=== PATIENT | male | born 1970 | race Caucasian/White ===

== ENCOUNTER → 2016-08-08 | Outpatient (CLI) | payer OTHER ==
[~2016-08-08] MED LIST: AMBI10TA PO; BACL10TA PO; FOLI1TAB2 PO; IBUP800T23 PO; NORC7.5T PO; NORCOTAB PO; TOPA25TA10 PO; VITA100T18 PO
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
== END ==
LOC: M LAB 12:21
PROVIDERS: ATTEND Psychiatry & Neurology Neurology
DX: M19.012 Primary osteoarthritis, left shoulder (principal)

== ENCOUNTER → 2016-08-08 | Outpatient (CLI) | payer OTHER ==
[2016-08-08 13:15] LABS: MEAN CORPUSCULAR HEMOGLOBIN 29.2 pg (27.0-33.0); MEAN CORPUSCULAR HGB CONC 33.1 g/dl (32.0-36.5); MEAN CORPUSCULAR VOLUME 88.1 fl (80.0-96.0); RED CELL DISTRIBUTION WIDTH 11.8 % (11.5-14.5); WHITE BLOOD COUNT 4.4 K/mm3 (4.0-10.0)
[2016-08-08 14:45] LABS: ALBUMIN/GLOBULIN RATIO 1.29 (1.00-1.93); ALKALINE PHOSPHATASE 82 U/L (45-117); ALT/SGPT 31 U/L (12-78); ANION GAP 9 MEQ/L (8-16); AST/SGOT 22 U/L (15-37); BILIRUBIN,TOTAL 0.4 MG/DL (0.2-1.0); BLOOD UREA NITROGEN 20 MG/DL (7-18); CALCIUM LEVEL 8.6 MG/DL (8.5-10.1); CARBON DIOXIDE LEVEL 29 MEQ/L (21-32); CHLORIDE LEVEL 101 MEQ/L (98-107); CHOLESTEROL LEVEL 191 MG/DL (<200); CREATININE FOR GFR 1.05 MG/DL (0.70-1.30); GLOMERULAR FILTRATION RATE > 60.0 (>60); GLUCOSE, FASTING 95 MG/DL (70-105); POTASSIUM SERUM 4.7 MEQ/L (3.5-5.1); SODIUM LEVEL 139 MEQ/L (136-145); TOTAL PROTEIN 7.1 GM/DL (6.4-8.2); TRIGLYCERIDES LEVEL 89 MG/DL (<150)
== END ==
LOC: M LAB 12:14
PROVIDERS: ATTEND Nurse Practitioner Family
DX: F41.8 Other specified anxiety disorders (principal)

== ENCOUNTER → 2016-10-31 | Outpatient (CLI) | payer OTHER ==
--- NOTE | 2016-10-31 19:11 | ECGEPIP ---
Stationary ECG Study [facility] Test Date: 2016-10-31 Pat Name: JESSE ESTRADA Department: Room: - Gender: M Laborer Pipelines: HETAL : 1970 Requested By: Lakshmi Encinas PIANO STRINGER Order Number: [id number] Reading MD: Lenore Zhong Measurements Intervals [place] Rate: 68 P: 47 MS: 193 QRS: 3 QRSD: 97 T: 18 QT: 366 QTc: 390 Interpretive Statements SINUS RHYTHM NO CHANGE 05/31/15 Electronically Signed On 10-31-2016 19:11:01 EDT by Lenore Zhong
--- NOTE | 2016-11-01 02:32 | REP ---
Clinical: Shortness of breath . Comparison: 05/15/2015 . Technique: PA and lateral. Findings: The mediastinum and cardiac silhouette are normal. The lung champion are clear and without acute consolidation, effusion, or pneumothorax. The skeletal structures are intact and normal. Impression: 1. No acute cardiopulmonary process. Signed by Fer Diaz MD 11/01/2016 02:23 A
== END ==
LOC: M EKG 14:53
PROVIDERS: ATTEND Nurse Practitioner Family
DX: R06.02 Shortness of breath (principal)

== ENCOUNTER → 2016-11-13 | Outpatient (CLI) | payer OTHER ==
--- NOTE | 2016-11-13 09:17 | PFTRPT ---
Tech: Efe Son SECURITY PROGRAM MANAGER Age: 46 Sex: Male Race: Height: 70.00 Inches Weight: 209.00 Lbs BSA: 2.13 Diagnosis: R06.02 PULMONARY FUNCTION REPORT ORDERING PROVIDER: MEHRAN Rawls DATE OF SERVICE: 11/13/16 SPIROMETRY: Excellent technical quality. The forced vital capacity is normal. The FEV1 is borderline in proportion. The obstructive index is, therefore, borderline, as well. FLOW VOLUME LOOP: The expiratory limb of the flow volume loop does show some nonspecific flow rate reductions. LUNG VOLUMES: The total lung capacity is normal. The residual volume is in proportion. DIFFUSION CAPACITY: The diffusion capacity is normal. HEMOGLOBIN: No hemoglobin is available for correction. AIRWAY MECHANICS: Airways resistance and conductance are normal. IMPRESSION: Borderline study in view of the above. Please correlate clinically. MTDD
== END ==
LOC: M CARPUL 08:38
PROVIDERS: ATTEND Nurse Practitioner Family
DX: R06.02 Shortness of breath (principal); R94.2 Abnormal results of pulmonary function studies

== ENCOUNTER → 2016-11-21 | Outpatient (CLI) | payer OTHER ==
--- NOTE | 2016-11-21 22:07 | REP ---
Clinical: Pain . Technique: Internal rotation, external rotation, and Y view right shoulder . Findings: No acute fracture or dislocation. The acromioclavicular and glenohumeral joints are intact. No periarticular calcifications or degenerative changes are appreciated. Sub acromial space is normal. Surrounding soft tissues are unremarkable. Impression: Normal right shoulder radiographs. Signed by Fer Diaz MD 11/21/2016 09:59 P
== END ==
LOC: M RAD 17:11
PROVIDERS: ATTEND Orthopaedic Surgery
DX: M25.511 Pain in right shoulder (principal)

== ENCOUNTER → 2016-11-23 | Outpatient (CLI) | payer OTHER | LOC: M PAIN 11:20 | PROVIDERS: ATTEND Nurse Practitioner Family | DX: G89.29 Other chronic pain (principal); M54.81 Occipital neuralgia; M54.2 Cervicalgia; M47.812 Spondylosis without myelopathy or radiculopathy, cervical region; F14.10 Cocaine abuse, uncomplicated; F10.20 Alcohol dependence, uncomplicated; F09 Unspecified mental disorder due to known physiological condition; M51.36 Other intervertebral disc degeneration, lumbar region; G47.33 Obstructive sleep apnea (adult) (pediatric); F90.9 Attention-deficit hyperactivity disorder, unspecified type; F32.9 Major depressive disorder, single episode, unspecified; M13.0 Polyarthritis, unspecified; G47.00 Insomnia, unspecified; Z87.820 Personal history of traumatic brain injury; F17.220 Nicotine dependence, chewing tobacco, uncomplicated; Z79.1 Long term (current) use of non-steroidal anti-inflammatories (NSAID); Z79.899 Other long term (current) drug therapy; Z88.5 Allergy status to narcotic agent ==

== ENCOUNTER 2017-04-23 07:30 | Outpatient (RCR) | payer OTHER ==
[~2017-04-23 07:30] MED LIST changes: -BACL10TA PO; +BACL1TAB8 PO; -FOLI1TAB2 PO; +FOLI1TAB4 PO; +IBUP1TAB7 PO; -IBUP800T23 PO; -NORC7.5T PO; +NORC7.5T35 PO; +TOPA1TAB PO; -TOPA25TA10 PO; -VITA100T18 PO; +VITA100T88 PO
== END 2017-04-24 ==
LOC: M ST 07:30
PROVIDERS: ATTEND Physician Assistant Medical
DX: Z51.89 Encounter for other specified aftercare (principal); R26.89 Other abnormalities of gait and mobility; G45.9 Transient cerebral ischemic attack, unspecified; R41.840 Attention and concentration deficit
CPT/HCPCS: 92507; 96125; G9168; G9169

== ENCOUNTER → 2017-05-24 | Outpatient (RCR) | payer OTHER | LOC: M ST 04-30 08:14 | PROVIDERS: ATTEND Physician Assistant Medical | DX: G45.9 Transient cerebral ischemic attack, unspecified (principal); R41.840 Attention and concentration deficit ==

== ENCOUNTER → 2017-05-31 | Outpatient (REF) | payer OTHER | LOC: M LAB REF 17:46 | PROVIDERS: ATTEND Physician Assistant | DX: R50.9 Fever, unspecified (principal) ==

== ENCOUNTER 2017-06-13 11:30 | Outpatient (RCR) | payer OTHER | END 2017-06-24 | LOC: M ST 11:30 | DX: Z51.89 Encounter for other specified aftercare (principal); G45.9 Transient cerebral ischemic attack, unspecified; R41.840 Attention and concentration deficit | CPT/HCPCS: 92507 ==

== ENCOUNTER 2017-06-26 14:03 | Outpatient (RCR) | payer OTHER | END 2017-07-25 | LOC: M PT 06-29 15:15 | DX: Z51.89 Encounter for other specified aftercare (principal); M25.511 Pain in right shoulder ==

== ENCOUNTER 2017-07-27 10:26 | Outpatient (RCR) | payer OTHER | END 2017-08-22 | LOC: M PT 10:26 | DX: Z51.89 Encounter for other specified aftercare (principal); M25.511 Pain in right shoulder ==

== ENCOUNTER 2017-08-31 09:36 | Outpatient (RCR) | payer OTHER | END 2017-09-22 | LOC: M PT 09:36 → M OT 09-12 13:11 | DX: Z51.89 Encounter for other specified aftercare (principal); M77.12 Lateral epicondylitis, left elbow ==

== ENCOUNTER 2017-10-02 12:57 | Outpatient (RCR) | payer OTHER | END 2017-10-22 | LOC: M OT 12:57 → M PT 10-17 12:52 → M OT 10-09 13:00 → M PT 10-17 12:52 | DX: Z51.89 Encounter for other specified aftercare (principal); M77.12 Lateral epicondylitis, left elbow ==

== ENCOUNTER 2018-04-30 15:08 | Observation (INO) | payer OTHER ==
[2018-04-30 16:51] LABS: HEMATOCRIT 40.2 % (42.0-52.0); HEMOGLOBIN 13.8 g/dl (13.5-17.5); MEAN CORPUSCULAR HEMOGLOBIN 29.7 pg (27.0-33.0); MEAN CORPUSCULAR HGB CONC 34.3 g/dl (32.0-36.5); MEAN CORPUSCULAR VOLUME 86.5 fl (80.0-96.0); PLATELET COUNT, AUTOMATED 248 10^3/uL (150-450); RED BLOOD COUNT 4.65 10^6/uL (4.30-6.10); RED CELL DISTRIBUTION WIDTH 11.4 % (11.5-14.5); WHITE BLOOD COUNT 5.3 10^3/uL (4.0-10.0)
[2018-04-30 17:15] LABS: AMPHETAMINES LEVEL URINE NEGATIVE (NEGATIVE); BARBITURATES URINE NEGATIVE (NEGATIVE); BENZODIAZEPINES URINE NEGATIVE (NEGATIVE); CANNABINOIDS URINE NEGATIVE (NEGATIVE); COCAINE METABOLITE URINE POSITIVE (NEGATIVE); METHADONE URINE NEGATIVE (NEGATIVE); OPIATES URINE NEGATIVE (NEGATIVE); PHENCYCLIDINE URINE NEGATIVE (NEGATIVE)
[2018-04-30 17:24] LABS: ACETAMINOPHEN LEVEL < 2.0 UG/ML (10.0-30.0); ALBUMIN 3.6 GM/DL (3.2-5.2); ALBUMIN/GLOBULIN RATIO 1.24 (1.00-1.93); ALKALINE PHOSPHATASE 82 U/L (45-117); ALT/SGPT 25 U/L (12-78); ANION GAP 7 MEQ/L (8-16); AST/SGOT 23 U/L (7-37); BILIRUBIN,DIRECT < 0.1 MG/DL (0.0-0.2); BILIRUBIN,TOTAL 0.4 MG/DL (0.2-1.0); BLOOD UREA NITROGEN 16 MG/DL (7-18); CALCIUM LEVEL 8.7 MG/DL (8.5-10.1); CARBON DIOXIDE LEVEL 31 MEQ/L (21-32); CHLORIDE LEVEL 98 MEQ/L (98-107); CREATININE FOR GFR 1.03 MG/DL (0.70-1.30); ETHYL ALCOHOL (ETHANOL) < 0.003 % (0.000-0.010); GLOMERULAR FILTRATION RATE > 60.0 (>60); GLUCOSE, FASTING 131 MG/DL (70-100); POTASSIUM SERUM 4.3 MEQ/L (3.5-5.1); SALICYLATE LEVEL < 1.7 MG/DL (5.0-30.0); SODIUM LEVEL 136 MEQ/L (136-145); TOTAL PROTEIN 6.5 GM/DL (6.4-8.2)
[2018-04-30] MEDS: NS 1,000 ML IV ×2 (17:38→21:44)
[2018-05-01 06:14] LABS: HEMATOCRIT 40.4 % (42.0-52.0); HEMOGLOBIN 13.2 g/dl (13.5-17.5); MEAN CORPUSCULAR HEMOGLOBIN 28.8 pg (27.0-33.0); MEAN CORPUSCULAR HGB CONC 32.7 g/dl (32.0-36.5); MEAN CORPUSCULAR VOLUME 88.2 fl (80.0-96.0); PLATELET COUNT, AUTOMATED 222 10^3/uL (150-450); RED BLOOD COUNT 4.58 10^6/uL (4.30-6.10); RED CELL DISTRIBUTION WIDTH 11.6 % (11.5-14.5); WHITE BLOOD COUNT 4.5 10^3/uL (4.0-10.0)
[2018-05-01] MEDS: NS 1,000 ML IV ×2 (06:24→14:13)
[2018-05-01 06:34] LABS: ALBUMIN 2.9 GM/DL (3.2-5.2); ALKALINE PHOSPHATASE 88 U/L (45-117); ALT/SGPT 22 U/L (12-78); ANION GAP 6 MEQ/L (8-16); AST/SGOT 17 U/L (7-37); BILIRUBIN,TOTAL 0.2 MG/DL (0.2-1.0); BLOOD UREA NITROGEN 21 MG/DL (7-18); CARBON DIOXIDE LEVEL 27 MEQ/L (21-32); CHLORIDE LEVEL 108 MEQ/L (98-107); GLOMERULAR FILTRATION RATE > 60.0 (>60); GLUCOSE, FASTING 110 MG/DL (70-100); MAGNESIUM LEVEL 2.1 MG/DL (1.8-2.4); PHOSPHORUS LEVEL 3.7 MG/DL (2.5-4.9); POTASSIUM SERUM 4.2 MEQ/L (3.5-5.1); SODIUM LEVEL 141 MEQ/L (136-145); TOTAL PROTEIN 5.8 GM/DL (6.4-8.2)
[2018-05-01] MEDS: THIAMINE 100 MG TAB PO (09:18)
[2018-05-01] MEDS: ENOXAPARIN 40 MG/0.4 ML SYRINGE (J1650) SC (09:19)
== END 2018-05-02 00:05 ==
LOC: M PSY 05-02 00:12 → M MSPAV 05-02 00:12 → M ED 15:08 → M ED INP 20:34 → M MSPAV 23:14
DX: T14.91XA Suicide attempt, initial encounter (principal); T42.6X2A Poisoning by other antiepileptic and sedative-hypnotic drugs, intentional self-harm, initial encounter; T50.902A Poisoning by unspecified drugs, medicaments and biological substances, intentional self-harm, initial encounter; T43.012A Poisoning by tricyclic antidepressants, intentional self-harm, initial encounter; R45.851 Suicidal ideations; F10.10 Alcohol abuse, uncomplicated; F19.20 Other psychoactive substance dependence, uncomplicated; G47.33 Obstructive sleep apnea (adult) (pediatric); Z87.820 Personal history of traumatic brain injury; Z79.899 Other long term (current) drug therapy; Z88.8 Allergy status to other drugs, medicaments and biological substances
CPT/HCPCS: J1650

== ENCOUNTER 2018-05-01 18:46 | Inpatient (IN) | payer MEDICAID, OTHER ==
[2018-05-02] MEDS ORDERED: MIRTAZAPINE 15 MG TAB PO (09:00)
[2018-05-02] MEDS: NICOTINE 21MG/24HR 1 EA TRANSDERMAL TD (10:11)
[2018-05-02] MEDS ORDERED: MAALOX 30 ML SUSP *UDC PO (13:45)
[2018-05-02] MEDS ORDERED: MOM 30ML SUSPENSION UDC PO (13:45)
[2018-05-02] MEDS: CitaloPRAM (CeleXA) 20 MG TAB PO (15:57)
[2018-05-02] MEDS: GABAPENTIN 300 MG CAP PO ×2 (15:57→20:49)
[2018-05-02] MEDS: MIRTAZAPINE 15 MG TAB PO (20:49)
[2018-05-03] MEDS: GABAPENTIN 300 MG CAP PO ×3 (08:49→20:51)
[2018-05-03] MEDS: CitaloPRAM (CeleXA) 20 MG TAB PO (08:49)
[2018-05-03] MEDS: NICOTINE 21MG/24HR 1 EA TRANSDERMAL TD (08:49)
[2018-05-03] MEDS: MIRTAZAPINE 15 MG TAB PO (20:51)
[2018-05-04] MEDS: CitaloPRAM (CeleXA) 20 MG TAB PO (08:22)
[2018-05-04] MEDS: GABAPENTIN 300 MG CAP PO ×3 (08:22→20:27)
[2018-05-04] MEDS: NICOTINE 21MG/24HR 1 EA TRANSDERMAL TD (08:23)
[2018-05-04] MEDS: MIRTAZAPINE 15 MG TAB PO (20:27)
[2018-05-05] MEDS: GABAPENTIN 300 MG CAP PO ×3 (08:30→20:22)
[2018-05-05] MEDS: NICOTINE 21MG/24HR 1 EA TRANSDERMAL TD (08:30)
[2018-05-05] MEDS: CitaloPRAM (CeleXA) 20 MG TAB PO (08:30)
[2018-05-05] MEDS: MIRTAZAPINE 15 MG TAB PO (20:22)
[2018-05-05] MEDS ORDERED: IBUPROFEN 800 MG TAB PO (22:15)
[2018-05-06] MEDS: NICOTINE 21MG/24HR 1 EA TRANSDERMAL TD ×2 (08:24→08:40)
[2018-05-06] MEDS: GABAPENTIN 300 MG CAP PO (08:24)
[2018-05-06] MEDS: CitaloPRAM (CeleXA) 20 MG TAB PO (08:24)
== END 2018-05-06 13:50 | disposition home or self-care (01) | DRG 754 ==
LOC: M PSY 05-02 00:10
DX: F32.9 Major depressive disorder, single episode, unspecified (principal); F14.14 Cocaine abuse with cocaine-induced mood disorder; F10.10 Alcohol abuse, uncomplicated; F17.210 Nicotine dependence, cigarettes, uncomplicated; J30.9 Allergic rhinitis, unspecified; Z88.5 Allergy status to narcotic agent; Z88.8 Allergy status to other drugs, medicaments and biological substances; Z87.820 Personal history of traumatic brain injury; Z91.5 Personal history of self-harm; Z59.9 Problem related to housing and economic circumstances, unspecified

== ENCOUNTER 2018-08-07 21:21 | Emergency (ER) | payer MEDICAID, OTHER ==
[~2018-08-07] VITALS: Ht 177.8 cm; Wt 86.4 kg
[~2018-08-07 21:21] MED LIST changes: +CELE20TA PO; +CITA20TA4 PO; +DRIS50003 PO; +FOLI1TAB11 PO; -FOLI1TAB4 PO; +GABA-843 PO; +IBUP80TA PO; +LORA-243 PO; +MIRT15TA3 PO; +NICO21PAT TD; +TEMA30CA PO
[2018-08-07 21:22] VITALS: BP 140/79
[2018-08-07] MEDS ORDERED: METH1TAB40 (21:34)
[2018-08-07] MEDS ORDERED: GENT3OPD OD (22:37)
[2018-08-07] MEDS ORDERED: GENTAMICIN 0.3% OPHTH SOL 5 ML BTL OD ONE (22:45)
== END 2018-08-07 22:46 | disposition home or self-care (01) ==
LOC: M ED 21:21
DX: S05.01XA Injury of conjunctiva and corneal abrasion without foreign body, right eye, initial encounter (principal); W31.1XXA Contact with metalworking machines, initial encounter; Y92.89 Other specified places as the place of occurrence of the external cause; F41.9 Anxiety disorder, unspecified; F32.9 Major depressive disorder, single episode, unspecified; G43.909 Migraine, unspecified, not intractable, without status migrainosus; G40.909 Epilepsy, unspecified, not intractable, without status epilepticus; F19.10 Other psychoactive substance abuse, uncomplicated; F10.10 Alcohol abuse, uncomplicated; Z88.5 Allergy status to narcotic agent; Z79.899 Other long term (current) drug therapy

== ENCOUNTER → 2018-09-11 | Outpatient (REF) | payer OTHER, MEDICAID ==
[~2018-09-11] MED LIST changes: +GENT3OPD OD; +METH1TAB40
[2018-09-11 14:16] LABS: BASO % 0.5 % (0.0-1.0); EOS # 0.1 10^3/uL (0.0-0.50); EOS % 2.2 % (0.0-3.0); HEMATOCRIT 41.7 % (42.0-52.0); HEMOGLOBIN 13.6 g/dl (13.5-17.5); LYMPH # 1.6 10^3/uL (1.5-4.5); LYMPH % 38.9 % (24.0-44.0); MEAN CORPUSCULAR HEMOGLOBIN 29.2 pg (27.0-33.0); MEAN CORPUSCULAR HGB CONC 32.6 g/dl (32.0-36.5); MEAN CORPUSCULAR VOLUME 89.5 fl (80.0-96.0); MONO # 0.4 10^3/uL (0.0-0.8); MONO % 9.2 % (0.0-5.0); NEUTROPHILS % 48.7 % (36.0-66.0); PLATELET COUNT, AUTOMATED 189 10^3/uL (150-450); RED BLOOD COUNT 4.66 10^6/uL (4.30-6.10)
[2018-09-11 14:42] LABS: ALBUMIN 3.6 GM/DL (3.2-5.2); ALT/SGPT 20 U/L (12-78); BILIRUBIN,TOTAL 0.3 MG/DL (0.2-1.0); BLOOD UREA NITROGEN 15 MG/DL (7-18); CALCIUM LEVEL 8.3 MG/DL (8.5-10.1); CARBON DIOXIDE LEVEL 25 MEQ/L (21-32); CHLORIDE LEVEL 105 MEQ/L (98-107); GLOMERULAR FILTRATION RATE > 60.0 (>60); GLUCOSE, FASTING 163 MG/DL (70-100); SODIUM LEVEL 139 MEQ/L (136-145); TOTAL PROTEIN 6.3 GM/DL (6.4-8.2)
[2018-09-11 14:53] LABS: INR 0.94; PROTHROMBIN TIME 12.7 SECONDS (12.1-14.4)
[2018-09-11 16:22] LABS: HEPATITIS B SURFACE ANTIBODY POSITIVE (POSITIVE)
[2018-09-11 16:32] LABS: HEPATITIS B SURFACE ANTIGEN NEGATIVE (NEGATIVE)
[2018-09-11 17:01] LABS: HIV 1&2 SCREEN CENTAUR NEGATIVE (NEGATIVE)
[2018-09-12 14:12] LABS: HEPATITIS A IgG TOTAL Negative (Negative); HEPATITIS B CORE ANTIBODY IGG Negative (Negative)
== END ==
LOC: M LAB REF 13:30
PROVIDERS: ATTEND Nurse Practitioner Adult Health
DX: Z13.9 Encounter for screening, unspecified (principal)

== ENCOUNTER 2019-02-05 18:31 | Emergency (ER) | payer OTHER, MEDICAID ==
[~2019-02-05] VITALS: Ht 177.8 cm; Wt 89.9 kg
[~2019-02-05 18:31] MED LIST changes: -CITA20TA4 PO; +CITA20TA6 PO; +GENT0.3S36 OD; -GENT3OPD OD; +HYDR-3715 PO; +NORC1TAB8 PO; -NORC7.5T35 PO; -NORCOTAB PO
[2019-02-05 21:01] VITALS: BP 124/66
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
[2019-02-06] MEDS ORDERED: GOOD81CH2 PO (21:31)
--- NOTE | 2019-02-09 20:39 | ED PDOC ---
Post-Departure Follow-Up dangelo esquivel faxed formal report of ct max fac for fu Ten Rodriguez MD Feb 09, 2019 20:39
== END 2019-02-05 22:27 | disposition home or self-care (01) ==
LOC: M ED 18:31
DX: S00.83XA Contusion of other part of head, initial encounter (principal); H11.32 Conjunctival hemorrhage, left eye; Y04.8XXA Assault by other bodily force, initial encounter; Y92.098 Other place in other non-institutional residence as the place of occurrence of the external cause; Z87.820 Personal history of traumatic brain injury; M51.9 Unspecified thoracic, thoracolumbar and lumbosacral intervertebral disc disorder; F19.10 Other psychoactive substance abuse, uncomplicated; F10.10 Alcohol abuse, uncomplicated; F41.9 Anxiety disorder, unspecified; Z88.5 Allergy status to narcotic agent; Z79.899 Other long term (current) drug therapy

== ENCOUNTER 2019-02-06 21:27 | Emergency (ER) | payer OTHER, MEDICAID ==
[~2019-02-06] VITALS: Ht 180.3 cm; Wt 90.9 kg
[2019-02-06] MEDS ORDERED: GOOD81CH2 PO (21:31)
[2019-02-06] MEDS ORDERED: TETRACAINE 0.5% OPHTH SOLN 4ML OU ONE (22:00)
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
[2019-02-07 00:36] VITALS: BP 123/76
== END 2019-02-07 00:39 | disposition home or self-care (01) ==
LOC: M ED 21:27
DX: H11.32 Conjunctival hemorrhage, left eye (principal); H57.04 Mydriasis; G47.30 Sleep apnea, unspecified; Z87.820 Personal history of traumatic brain injury; Z87.891 Personal history of nicotine dependence; Z86.79 Personal history of other diseases of the circulatory system; Z79.82 Long term (current) use of aspirin; Z79.899 Other long term (current) drug therapy; Z88.5 Allergy status to narcotic agent

== ENCOUNTER 2019-02-11 20:35 | Emergency (ER) | payer OTHER, MEDICAID ==
[~2019-02-11] VITALS: Ht 177.8 cm; Wt 90.9 kg
[~2019-02-11 20:35] MED LIST changes: +GOOD81CH2 PO
[2019-02-12 01:04] VITALS: BP 121/76
== END 2019-02-12 01:45 | disposition home or self-care (01) ==
LOC: M ED 20:35
DX: H11.32 Conjunctival hemorrhage, left eye (principal); H57.02 Anisocoria; Z87.891 Personal history of nicotine dependence; Z87.828 Personal history of other (healed) physical injury and trauma

== ENCOUNTER → 2019-07-23 | Outpatient (CLI) | payer OTHER ==
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
== END ==
LOC: M PAIN 13:15
PROVIDERS: ATTEND Nurse Practitioner Family
DX: M79.18 Myalgia, other site (principal)

== ENCOUNTER 2019-12-15 22:11 | Emergency (ER) | payer OTHER ==
[~2019-12-15] VITALS: Ht 180.3 cm; Wt 79.9 kg
[2019-12-15] MEDS ORDERED: NS 1,000 ML IV ONE (22:30)
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
[2019-12-15 22:48] LABS: BASO # 0.1 10^3/uL (0.0-0.2); BASO % 1.1 % (0.0-1.0); EOS # 0.1 10^3/uL (0.0-0.5); EOS % 1.1 % (0.0-3.0); HEMATOCRIT 39.4 % (42.0-52.0); HEMOGLOBIN 13.2 g/dl (13.5-17.5); MEAN CORPUSCULAR HEMOGLOBIN 29.7 pg (27.0-33.0); MEAN CORPUSCULAR HGB CONC 33.5 g/dl (32.0-36.5); MEAN CORPUSCULAR VOLUME 88.5 fl (80.0-96.0); MONO # 0.4 10^3/uL (0.0-0.8); MONO % 9.3 % (0.0-5.0); NEUTROPHILS # 2.1 10^3/uL (1.5-8.5); NEUTROPHILS % 45.1 % (36.0-66.0); PLATELET COUNT, AUTOMATED 213 10^3/uL (150-450); RED BLOOD COUNT 4.45 10^6/uL (4.30-6.10); WHITE BLOOD COUNT 4.7 10^3/uL (4.0-10.0)
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
[2019-12-15 23:11] LABS: ALBUMIN 3.7 GM/DL (3.2-5.2); ALT/SGPT 27 U/L (12-78); BILIRUBIN,DIRECT 0.1 MG/DL (0.0-0.2); BILIRUBIN,TOTAL 0.2 MG/DL (0.2-1.0); BLOOD UREA NITROGEN 12 MG/DL (7-18); CALCIUM LEVEL 7.9 MG/DL (8.5-10.1); CARBON DIOXIDE LEVEL 25 MEQ/L (21-32); CHLORIDE LEVEL 102 MEQ/L (98-107); CK-MB VALUE MASS 2.6 NG/ML (<3.6); CPK CREATINE PHOSPHOKINASE 287 U/L (39-308); CREATININE FOR GFR 0.83 MG/DL (0.70-1.30); ETHYL ALCOHOL (ETHANOL) 0.281 % (0.000-0.010); GLOMERULAR FILTRATION RATE > 60.0 (>60); GLUCOSE, FASTING 95 MG/DL (70-100); MB/CK RELATIVE INDEX 0.91 (< OR =4); POTASSIUM SERUM 3.8 MEQ/L (3.5-5.1); SODIUM LEVEL 134 MEQ/L (136-145); TOTAL PROTEIN 6.5 GM/DL (6.4-8.2); TROPONIN I < 0.02 NG/ML (< 0.10)
[2019-12-15] MEDS ORDERED: MORPHINE 4 MG/ML 1ML VIAL/SYRINGE (J2270) IV PRN (23:15)
[2019-12-15] MEDS ORDERED: ONDANSETRON 4MG/2ML VIAL IV ONE (23:15)
[2019-12-16] MEDS ORDERED: LIDOCAINE W/EPINEPHRINE 1% 20ML VIAL As Ordered ONE (00:38)
[2019-12-16 00:47] LABS: AMPHETAMINES LEVEL URINE NEGATIVE (NEGATIVE); BARBITURATES URINE NEGATIVE (NEGATIVE); BENZODIAZEPINES URINE NEGATIVE (NEGATIVE); CANNABINOIDS URINE NEGATIVE (NEGATIVE); COCAINE METABOLITE URINE POSITIVE (NEGATIVE); METHADONE URINE NEGATIVE (NEGATIVE); OPIATES URINE POSITIVE (NEGATIVE); PHENCYCLIDINE URINE NEGATIVE (NEGATIVE)
[2019-12-16 01:15] VITALS: BP 125/73
--- NOTE | 2019-12-16 07:52 | ECGEPIP ---
[facility] - ED Test Date: 2019-12-15 Pat Name: JESSE ESTRADA Department: Room: - Gender: Male Medical Claims Representative: MR : [id number] Requested By: CAM Jay Order Number: [id number] Reading MD: Ric Meza Measurements Intervals [place] Rate: 81 P: 57 CO: 200 QRS: 42 QRSD: 102 T: 44 QT: 366 QTc: 426 Interpretive Statements SINUS RHYTHM INCOMPLETE RIGHT BUNDLE BRANCH BLOCK SIMILAR TO 05/01/18 Electronically Signed on 12-16-2019 7:52:38 EDT by Ric Meza
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
--- NOTE | 2019-12-17 14:27 | ED PDOC ---
Post-Departure Follow-Up dangelo esquivel faxed formal report of ct ls spine for fu Ten Rodriguez MD Dec 17, 2019 14:27
== END 2019-12-16 01:35 | disposition left against medical advice (07) ==
LOC: M ED 22:11
DX: S01.81XA Laceration without foreign body of other part of head, initial encounter (principal); F10.120 Alcohol abuse with intoxication, uncomplicated; V13.4XXA Pedal cycle driver injured in collision with car, pick-up truck or van in traffic accident, initial encounter; Y92.410 Unspecified street and highway as the place of occurrence of the external cause; Z88.5 Allergy status to narcotic agent; Z79.899 Other long term (current) drug therapy
CPT/HCPCS: 12011; 70450; 70486; 71045; 72125; 72170; 80048; 80076; 80307; 82550; 82553; 83605; 85025; 86850; 86900; 86901; 93005; 93041; 96361; 96374; 96375; 99285; G0480; J2270; J2405

== ENCOUNTER → 2020-12-04 | Outpatient (CLI) | payer OTHER ==
[~2020-12-04] MED LIST changes: +GABA-282 PO; -GABA-843 PO; +METH-1164; -METH1TAB40; -VITA100T88 PO; +VITAMIN B-1100 M4 PO
== END ==
LOC: M SLEEP 20:00
PROVIDERS: ATTEND Physician Assistant
DX: G47.33 Obstructive sleep apnea (adult) (pediatric) (principal)

== ENCOUNTER → 2020-12-30 | Outpatient (CLI) | payer OTHER ==
[2020-12-30 20:27] LABS: BASO % 0.5 % (0.0-1.0); EOS # 0.1 10^3/uL (0.0-0.5); EOS % 2.2 % (0.0-3.0); HEMATOCRIT 42.7 % (42.0-52.0); HEMOGLOBIN 13.9 g/dl (13.5-17.5); LYMPH # 1.5 10^3/uL (1.5-5.0); LYMPH % 24.4 % (24.0-44.0); MEAN CORPUSCULAR HEMOGLOBIN 28.9 pg (27.0-33.0); MEAN CORPUSCULAR HGB CONC 32.6 g/dl (32.0-36.5); MEAN CORPUSCULAR VOLUME 88.8 fl (80.0-96.0); MONO # 0.5 10^3/uL (0.0-0.8); MONO % 7.5 % (2.0-8.0); NEUTROPHILS # 4.1 10^3/uL (1.5-8.5); NEUTROPHILS % 65.1 % (36.0-66.0); PLATELET COUNT, AUTOMATED 229 10^3/uL (150-450); RED BLOOD COUNT 4.81 10^6/uL (4.30-6.10); WHITE BLOOD COUNT 6.2 10^3/uL (4.0-10.0)
[2020-12-30 21:02] LABS: ALBUMIN 3.8 GM/DL (3.2-5.2); ALT/SGPT 30 U/L (12-78); BILIRUBIN,TOTAL 0.3 MG/DL (0.2-1.0); BLOOD UREA NITROGEN 22 MG/DL (7-18); CALCIUM LEVEL 8.5 MG/DL (8.5-10.1); CARBON DIOXIDE LEVEL 30 MEQ/L (21-32); CHLORIDE LEVEL 106 MEQ/L (98-107); CREATININE FOR GFR 0.93 MG/DL (0.70-1.30); FREE T4 0.93 NG/DL (0.76-1.46); GLOMERULAR FILTRATION RATE > 60.0 (>60); GLUCOSE, FASTING 132 MG/DL (70-100); HEPATITIS B SURFACE ANTIBODY NEGATIVE (POSITIVE); SODIUM LEVEL 140 MEQ/L (136-145); THYROID STIMULATING HORMONE 0.457 uIU/ML (0.358-3.740); TOTAL PROTEIN 6.6 GM/DL (6.4-8.2)
[2020-12-30 21:41] LABS: HIV 1&2 SCREEN CENTAUR NEGATIVE (NEGATIVE)
[2020-12-30 22:48] LABS: GC DNA AMPLIFICATION NEGATIVE (NEGATIVE)
== END ==
LOC: M LAB 18:14
PROVIDERS: ATTEND Nurse Practitioner
DX: R53.83 Other fatigue (principal)

== ENCOUNTER → 2021-03-31 | Outpatient (CLI) | payer OTHER ==
[2021-03-31 12:31] LABS: PERCENT SATURATION 25.2 % (19.7-50.0)
== END ==
LOC: M LAB 09:31
PROVIDERS: ATTEND Nurse Practitioner
DX: G25.81 Restless legs syndrome (principal)

== ENCOUNTER → 2021-08-01 | Outpatient (CLI) | payer OTHER | LOC: M WUC 13:51 | PROVIDERS: ATTEND Physician Assistant | DX: M25.512 Pain in left shoulder (principal) ==

== ENCOUNTER → 2021-08-30 | Outpatient (CLI) | payer OTHER | LOC: M RAD 12:25 | PROVIDERS: ATTEND Physician Assistant | DX: M75.31 Calcific tendinitis of right shoulder (principal) ==

== ENCOUNTER 2021-09-24 09:06 | Emergency (ER) | payer OTHER ==
[~2021-09-24] VITALS: Ht 177.8 cm; Wt 88.6 kg
[2021-09-24 09:07] VITALS: BP 132/76
[2021-09-24] MEDS ORDERED: IBUP1TAB7 PO (09:18)
[2021-09-24] MEDS ORDERED: META1TAB22 PO (09:18)
[2021-09-24] MEDS ORDERED: PROPARACAINE 0.5% OPHTH SOL 15ML OD ONE (09:50)
[2021-09-24] MEDS ORDERED: GABA-282 PO (10:40)
== END 2021-09-24 13:30 | disposition home or self-care (01) ==
LOC: M ED 09:06
DX: H57.04 Mydriasis (principal); Z88.5 Allergy status to narcotic agent; Z79.899 Other long term (current) drug therapy

== ENCOUNTER → 2021-12-28 | Outpatient (CLI) | payer OTHER ==
[~2021-12-28] MED LIST changes: +META1TAB22 PO
[2021-12-28 12:39] LABS: BASO % 0.7 % (0.0-1.0); EOS # 0.2 10^3/uL (0.0-0.5); EOS % 3.7 % (0.0-3.0); HEMATOCRIT 44.4 % (42.0-52.0); HEMOGLOBIN 13.8 g/dl (13.5-17.5); LYMPH # 1.2 10^3/uL (1.5-5.0); LYMPH % 30.2 % (24.0-44.0); MEAN CORPUSCULAR HEMOGLOBIN 28.5 pg (27.0-33.0); MEAN CORPUSCULAR HGB CONC 31.1 g/dl (32.0-36.5); MEAN CORPUSCULAR VOLUME 91.5 fl (80.0-96.0); MONO # 0.4 10^3/uL (0.0-0.8); MONO % 9.4 % (2.0-8.0); NEUTROPHILS # 2.3 10^3/uL (1.5-8.5); NEUTROPHILS % 55.8 % (36.0-66.0); PLATELET COUNT, AUTOMATED 214 10^3/uL (150-450); RED BLOOD COUNT 4.85 10^6/uL (4.30-6.10)
[2021-12-28 13:34] LABS: ALBUMIN 3.5 GM/DL (3.2-5.2); ALT/SGPT 27 U/L (12-78); BILIRUBIN,DIRECT 0.1 MG/DL (0.0-0.2); BILIRUBIN,TOTAL 0.4 MG/DL (0.2-1.0); BLOOD UREA NITROGEN 13 MG/DL (7-18); CALCIUM LEVEL 8.6 MG/DL (8.5-10.1); CARBON DIOXIDE LEVEL 30 MEQ/L (21-32); CHLORIDE LEVEL 106 MEQ/L (98-107); CHOLESTEROL LEVEL 184 MG/DL (<200); CHOLESTEROL RISK RATIO 2.746 (<5); CREATININE FOR GFR 0.96 MG/DL (0.70-1.30); GLOMERULAR FILTRATION RATE > 60.0 (>60); GLUCOSE, FASTING 121 MG/DL (70-100); GLUCOSE,RANDOM 121 MG/DL (LESS THAN 200); HDL CHOLESTEROL 67 MG/DL (>40); LDL CHOLESTEROL 97 MG/DL (<100); NON-HDL-C 117 MG/DL; PHOSPHORUS LEVEL 3.3 MG/DL (2.5-4.9); POTASSIUM SERUM 4.5 MEQ/L (3.5-5.1); SODIUM LEVEL 138 MEQ/L (136-145); THYROID STIMULATING HORMONE 0.964 uIU/ML (0.358-3.740); TOTAL 25(OH) VITAMIN D 35.2 NG/ML (30.0-100.0); TOTAL PROTEIN 6.1 GM/DL (6.4-8.2); TRIGLYCERIDES LEVEL 98 MG/DL (<150)
== END ==
LOC: M WUC 09:57
PROVIDERS: ATTEND Registered Nurse
DX: Z51.81 Encounter for therapeutic drug level monitoring (principal); F32.9 Major depressive disorder, single episode, unspecified; Z13.9 Encounter for screening, unspecified; E55.9 Vitamin D deficiency, unspecified; Z79.899 Other long term (current) drug therapy

== ENCOUNTER → 2022-03-22 | Outpatient (CLI) | payer OTHER ==
[~2022-03-22] MED LIST changes: +ISOVUE-370 76% 100ML VIAL As Ordered ONE
== END ==
LOC: M RAD 15:48
PROVIDERS: ATTEND Psychiatry & Neurology Neurology
DX: M89.9 Disorder of bone, unspecified (principal)
CPT/HCPCS: 70470; Q9967

== ENCOUNTER → 2023-08-31 | Outpatient (REF) | payer OTHER ==
[~2023-08-31] MED LIST changes: +ASPI-663 PO; -GOOD81CH2 PO; -ISOVUE-370 76% 100ML VIAL As Ordered ONE
[2023-08-31 12:07] LABS: ALBUMIN 3.7 G/DL (3.2-5.2); ALKALINE PHOSPHATASE 77 U/L (46-116); ALT/SGPT 26 U/L (7.0-40); AST/SGOT 18 U/L (<34); BILIRUBIN,TOTAL 0.4 MG/DL (0.3-1.2); BLOOD UREA NITROGEN 18 MG/DL (9-23); CALCIUM LEVEL 8.5 MG/DL (8.5-10.1); CARBON DIOXIDE LEVEL 32 MMOL/L (20-31); CHLORIDE LEVEL 105 MMOL/L (98-107); CHOLESTEROL LEVEL 187 MG/DL (<200); CHOLESTEROL RISK RATIO 2.91 (<5); CREATININE FOR GFR 0.87 MG/DL (0.70-1.30); GLOMERULAR FILTRATION RATE > 60.0 (>56); GLUCOSE, FASTING 119 MG/DL (60-100); HDL CHOLESTEROL 64.1 MG/DL (>40); LDL CHOLESTEROL 102.3 MG/DL (<100); NON-HDL-C 122.9 MG/DL; POTASSIUM SERUM 4.7 MMOL/L (3.5-5.1); SODIUM LEVEL 138 MMOL/L (136-145); TOTAL PROTEIN 6.2 G/DL (5.7-8.2); TRIGLYCERIDES LEVEL 103 MG/DL (<150)
[2023-08-31 12:10] LABS: THYROID STIMULATING HORMONE 1.588 uIU/ML (0.55-4.78)
== END ==
LOC: M LAB REF 11:16
PROVIDERS: ATTEND Family Medicine Addiction Medicine
DX: E66.3 Overweight (principal)

== ENCOUNTER → 2023-09-24 | Outpatient (CLI) | payer OTHER | LOC: M WUC 11:59 | PROVIDERS: ATTEND Family Medicine Addiction Medicine | DX: M25.561 Pain in right knee (principal); M25.562 Pain in left knee ==

== ENCOUNTER → 2023-12-03 | Outpatient (REF) | payer OTHER ==
[2023-12-03 14:04] LABS: ALBUMIN 4.1 G/DL (3.2-5.2); ALKALINE PHOSPHATASE 93 U/L (46-116); ALT/SGPT 31 U/L (7.0-40); AST/SGOT 17 U/L (<34); BILIRUBIN,TOTAL 0.4 MG/DL (0.3-1.2); BLOOD UREA NITROGEN 20 MG/DL (9-23); CALCIUM LEVEL 9.3 MG/DL (8.5-10.1); CARBON DIOXIDE LEVEL 29 MMOL/L (20-31); CHLORIDE LEVEL 104 MMOL/L (98-107); CHOLESTEROL LEVEL 204 MG/DL (<200); CHOLESTEROL RISK RATIO 3.52 (<5); CREATININE FOR GFR 0.86 MG/DL (0.70-1.30); GLOMERULAR FILTRATION RATE > 60.0 (>56); GLUCOSE, FASTING 121 MG/DL (60-100); HDL CHOLESTEROL 57.9 MG/DL (>40); LDL CHOLESTEROL 113.7 MG/DL (<100); NON-HDL-C 146.1 MG/DL; POTASSIUM SERUM 4.5 MMOL/L (3.5-5.1); SODIUM LEVEL 136 MMOL/L (136-145); TOTAL PROTEIN 6.5 G/DL (5.7-8.2); TRIGLYCERIDES LEVEL 162 MG/DL (<150)
[2023-12-03 14:17] LABS: HEMOGLOBIN A1c 5.8 % (4.0-6.0)
[2023-12-03 14:42] LABS: HIV 1&2 SCREEN NEGATIVE (NEGATIVE)
[2023-12-03 14:56] LABS: TESTOSTERONE 572 NG/DL (241-827)
[2023-12-03 15:00] LABS: THYROID STIMULATING HORMONE 1.613 uIU/ML (0.55-4.78)
== END ==
LOC: M LAB REF 13:09
PROVIDERS: ATTEND Family Medicine Addiction Medicine
DX: R73.03 Prediabetes (principal); R68.82 Decreased libido

== ENCOUNTER → 2024-03-10 | Outpatient (REF) | payer OTHER ==
[2024-03-10 15:30] LABS: HEMOGLOBIN A1c 5.9 % (4.0-6.0)
[2024-03-10 15:34] LABS: ALBUMIN 3.9 G/DL (3.2-5.2); ALKALINE PHOSPHATASE 105 U/L (46-116); ALT/SGPT 28 U/L (7.0-40); AST/SGOT 22 U/L (<34); BILIRUBIN,TOTAL 0.3 MG/DL (0.3-1.2); BLOOD UREA NITROGEN 18 MG/DL (9-23); CALCIUM LEVEL 8.8 MG/DL (8.5-10.1); CARBON DIOXIDE LEVEL 29 MMOL/L (20-31); CHLORIDE LEVEL 105 MMOL/L (98-107); CHOLESTEROL LEVEL 190 MG/DL (<200); CHOLESTEROL RISK RATIO 3.05 (<5); CREATININE FOR GFR 0.86 MG/DL (0.70-1.30); GLOMERULAR FILTRATION RATE > 60.0 (>56); GLUCOSE, FASTING 104 MG/DL (60-100); HDL CHOLESTEROL 62.2 MG/DL (>40); NON-HDL-C 127.8 MG/DL; POTASSIUM SERUM 4.4 MMOL/L (3.5-5.1); SODIUM LEVEL 139 MMOL/L (136-145); TOTAL PROTEIN 6.5 G/DL (5.7-8.2); TRIGLYCERIDES LEVEL 104 MG/DL (<150)
== END ==
LOC: M LAB REF 11:35
PROVIDERS: ATTEND Family Medicine Addiction Medicine
DX: R73.03 Prediabetes (principal)

== ENCOUNTER → 2024-06-05 | Outpatient (REF) | payer OTHER ==
[~2024-06-05] MED LIST changes: +GABA-1172 PO; -GABA-282 PO; +META-10 PO; -META1TAB22 PO
[2024-06-05 14:24] LABS: ALBUMIN 3.6 G/DL (3.2-5.2); ALKALINE PHOSPHATASE 75 U/L (40-129); ALT/SGPT 34 U/L (7.0-40); AST/SGOT 26 U/L (<34); BILIRUBIN,TOTAL 0.3 MG/DL (0.3-1.2); BLOOD UREA NITROGEN 18 MG/DL (9-23); CALCIUM LEVEL 9.4 MG/DL (8.5-10.1); CARBON DIOXIDE LEVEL 31 MMOL/L (20-31); CHLORIDE LEVEL 106 MMOL/L (98-107); CHOLESTEROL LEVEL 186 MG/DL (<200); CHOLESTEROL RISK RATIO 2.91 (<5); GLOMERULAR FILTRATION RATE > 60.0 (>56); GLUCOSE, FASTING 118 MG/DL (60-100); HDL CHOLESTEROL 63.8 MG/DL (>40); NON-HDL-C 122.2 MG/DL; SODIUM LEVEL 139 MMOL/L (136-145); TOTAL PROTEIN 6.3 G/DL (5.7-8.2); TRIGLYCERIDES LEVEL 86 MG/DL (<150)
[2024-06-05 14:26] LABS: THYROID STIMULATING HORMONE 2.474 uIU/ML (0.55-4.78)
[2024-06-05 14:47] LABS: HEMOGLOBIN A1c 5.9 % (4.0-6.0)
== END ==
LOC: M LAB REF 13:36
PROVIDERS: ATTEND Family Medicine Addiction Medicine
DX: R73.03 Prediabetes (principal)

== ENCOUNTER → 2024-07-24 | Outpatient (CLI) | payer OTHER | LOC: M WUC 13:39 | PROVIDERS: ATTEND Student in an Organized Health Care Education/Training Program | DX: M19.011 Primary osteoarthritis, right shoulder (principal); M19.031 Primary osteoarthritis, right wrist; M19.041 Primary osteoarthritis, right hand ==

== ENCOUNTER → 2024-08-21 | Outpatient (CLI) | payer OTHER | LOC: M RAD 09:54 | PROVIDERS: ATTEND Student in an Organized Health Care Education/Training Program | DX: R10.13 Epigastric pain (principal) ==

== ENCOUNTER → 2024-09-10 | Outpatient (CLI) | payer OTHER | LOC: M WUC 12:50 | PROVIDERS: ATTEND Family Medicine Addiction Medicine | DX: M25.561 Pain in right knee (principal); M19.012 Primary osteoarthritis, left shoulder ==

== ENCOUNTER → 2024-09-11 | Outpatient (CLI) | payer OTHER | LOC: M PLAIMG 08:13 | PROVIDERS: ATTEND Physician Assistant Surgical | DX: M75.51 Bursitis of right shoulder (principal); M67.811 Other specified disorders of synovium, right shoulder; S46.011A Strain of muscle(s) and tendon(s) of the rotator cuff of right shoulder, initial encounter; S43.431A Superior glenoid labrum lesion of right shoulder, initial encounter; M19.011 Primary osteoarthritis, right shoulder ==

== ENCOUNTER → 2024-09-29 | Outpatient (CLI) | payer OTHER | LOC: M WUC 14:04 | PROVIDERS: ATTEND Physician Assistant | DX: M19.012 Primary osteoarthritis, left shoulder (principal) ==

== ENCOUNTER 2024-10-24 16:04 | Emergency (ER) | payer OTHER ==
[~2024-10-24] VITALS: Ht 180.3 cm; Wt 83.6 kg
[~2024-10-24 16:04] MED LIST changes: -AMBI10TA PO; +ZOLP-533 PO
[2024-10-24 16:27] VITALS: TEMP 97.9
[2024-10-24 16:53] LABS: BASO % 0.5 % (0.0-1.0); EOS # 0.1 10^3/uL (0.0-0.5); EOS % 0.6 % (0.0-3.0); HEMATOCRIT 40.9 % (42.0-52.0); HEMOGLOBIN 13.3 g/dl (13.5-17.5); LYMPH # 1.2 10^3/uL (1.5-5.0); MEAN CORPUSCULAR HEMOGLOBIN 28.2 pg (27.0-33.0); MEAN CORPUSCULAR HGB CONC 32.5 g/dl (32.0-36.5); MEAN CORPUSCULAR VOLUME 86.8 fl (80.0-96.0); MONO # 0.5 10^3/uL (0.0-0.8); MONO % 6.4 % (2.0-8.0); NEUTROPHILS % 77.1 % (36.0-66.0); PLATELET COUNT, AUTOMATED 226 10^3/uL (150-450); RED BLOOD COUNT 4.71 10^6/uL (4.30-6.10); WHITE BLOOD COUNT 7.8 10^3/uL (4.0-10.0)
[2024-10-24 17:16] LABS: CK-MB VALUE MASS 1.4 NG/ML (<3.6)
[2024-10-24 17:17] LABS: INR 0.93; PARTIAL THROMBOPLASTIN TIME 27.5 SECONDS (24.8-34.2); PROTHROMBIN TIME 12.8 SECONDS (12.5-14.5)
[2024-10-24 17:18] LABS: ALBUMIN 3.8 G/DL (3.2-5.2); ALKALINE PHOSPHATASE 71 U/L (40-129); ALT/SGPT 22 U/L (7.0-40); AST/SGOT 21 U/L (<34); BILIRUBIN,DIRECT 0.2 MG/DL (<0.4); BILIRUBIN,TOTAL 0.6 MG/DL (0.3-1.2); BLOOD UREA NITROGEN 18 MG/DL (9-23); CALCIUM LEVEL 8.8 MG/DL (8.5-10.1); CARBON DIOXIDE LEVEL 28 MMOL/L (20-31); CHLORIDE LEVEL 106 MMOL/L (98-107); CPK CREATINE PHOSPHOKINASE 166 U/L (46-171); CREATININE FOR GFR 0.91 MG/DL (0.70-1.30); GLOMERULAR FILTRATION RATE > 90.0 (>56); GLUCOSE, FASTING 104 MG/DL (60-100); MB/CK RELATIVE INDEX 0.84 (< OR =4); POTASSIUM SERUM 4.3 MMOL/L (3.5-5.1); SODIUM LEVEL 140 MMOL/L (136-145); TOTAL PROTEIN 6.3 G/DL (5.7-8.2)
[2024-10-24] MEDS: MAALOX 30 ML SUSP *UDC PO ONE (17:33)
[2024-10-24] MEDS: SUCRALFATE SUSP 1GM/10ML UD PO ONE (17:33)
[2024-10-24] MEDS: LIDOCAINE VISCOUS 2% SOLN 15ML UDC PO ONE (17:33)
[2024-10-24 18:02] LABS: CK-MB VALUE MASS 1.6 NG/ML (<3.6)
[2024-10-24 18:03] LABS: CPK CREATINE PHOSPHOKINASE 156 U/L (46-171); MB/CK RELATIVE INDEX 1.02 (< OR =4)
[2024-10-24 19:00] VITALS: BP 119/68; O2SAT 94
== END 2024-10-24 19:11 | disposition home or self-care (01) ==
LOC: M ED 16:04
DX: R07.9 Chest pain, unspecified (principal); R00.1 Bradycardia, unspecified; I45.10 Unspecified right bundle-branch block; K21.9 Gastro-esophageal reflux disease without esophagitis; F32.A Depression, unspecified; F12.10 Cannabis abuse, uncomplicated; Z88.5 Allergy status to narcotic agent

== ENCOUNTER → 2025-02-17 | Outpatient (CLI) | payer OTHER | LOC: M WUC 11:05 | PROVIDERS: ATTEND Family Medicine Addiction Medicine | DX: M54.50 Low back pain, unspecified (principal) ==

== ENCOUNTER 2025-03-01 20:21 | Emergency (ER) | payer OTHER ==
[~2025-03-01] VITALS: Ht 177.8 cm; Wt 84.1 kg
[2025-03-01] MEDS ORDERED: TIZA4CAP PO (21:32)
[2025-03-01] MEDS ORDERED: MEDR4PAK PO (21:32)
[2025-03-01] MEDS: KETOROLAC 30 MG/ML 1 ML VIAL IM ONE (21:57)
[2025-03-01 22:08] VITALS: BP 140/79; TEMP 96.7; O2SAT 99
== END 2025-03-01 22:25 | disposition home or self-care (01) ==
LOC: M ED 20:21
DX: S39.012A Strain of muscle, fascia and tendon of lower back, initial encounter (principal); Y92.9 Unspecified place or not applicable; Y93.9 Activity, unspecified; Y99.9 Unspecified external cause status; Z86.73 Personal history of transient ischemic attack (TIA), and cerebral infarction without residual deficits; Z88.5 Allergy status to narcotic agent; Z79.899 Other long term (current) drug therapy
CPT/HCPCS: 96372; 99283; J1885